=== PATIENT | female | born 1945 | race Caucasian/White ===

== ENCOUNTER → 2018-05-09 | Outpatient (CLI) | payer OTHER ==
[~2018-05-09] MED LIST: ASPI-555 PO; CYAN10009 PO; FENO48TA4 PO; FURO20TA4 PO; GLYB5TAB8 PO; HYDR-4154 PO; LIRA0.6P SQ; METF-527 PO; METO-409 PO; OMEG-112 PO; SIMV40TA59 PO
== END | disposition home or self-care (01) ==
LOC: RAH 10:27
PROVIDERS: ATTEND Internal Medicine Cardiovascular Disease
DX: Z13.6 Encounter for screening for cardiovascular disorders (principal)
CPT/HCPCS: 75571

== ENCOUNTER 2018-07-25 05:40 | Day surgery (SDC) | payer MEDICARE ==
[2018-07-20 10:49] VITALS: BP 154/74
[2018-07-20 10:59] LABS: BASOPHILS % (AUTO) 0.5 % (0.0-5.0); EOSINOPHILS % (AUTO) 1.6 % (0.0-8.0); HEMATOCRIT 38.9 % (36-48); LYMPHOCYTES % (AUTO) 21.9 % (21.0-51.0); MEAN CORPUSCULAR HEMOGLOBIN 29.6 pg (27.0-33.0); MEAN CORPUSCULAR HGB CONC 33.4 g/dL (32.0-36.0); MEAN CORPUSCULAR VOLUME 88.8 fL (79-99); MONOCYTES % (AUTO) 6.6 % (3.0-13.0); NEUTROPHILS % (AUTO) 69.4 % (40.0-77.0); NUCLEATED RED BLOOD CELLS 0.1 % (0.0-0.19); PLATELET COUNT (AUTO) 150 K/uL (130-400); RED BLOOD CELL COUNT(AUTO) 4.38 MIL/uL (4.00-5.50); RED CELL DISTRIBUTION WIDTH 14.5 % (11.0-15.5); WHITE BLOOD COUNT (AUTO) 7.6 K/uL (4.8-10.8)
[2018-07-20 11:07] LABS: CREATININE 1.4 mg/dL (0.5-1.5); POTASSIUM 3.7 mmol/L (3.5-5.1)
[2018-07-20 11:11] LABS: APPEARANCE,URINE Clear (CLEAR); BILIRUBIN,URINE Negative (NEGATIVE); COLOR,URINE Yellow (YELLOW); GLUCOSE, URINE (UA) Negative (NEGATIVE); KETONES,URINE Negative (NEGATIVE); LEUKOCYTE ESTERASE ,URINE Trace (NEGATIVE); NITRATE,URINE Negative (NEGATIVE); OCCULT BLOOD,URINE Negative (NEGATIVE); PROTEIN,URINE Negative (NEGATIVE); UROBILINOGEN,URINE 0.2 mg/dL (0.2-1.0)
[2018-07-20 11:40] LABS: INR 0.96 (0.85-1.15); PARTIAL THROMBOPLASTIN TIME 29.6 SEC (26.3-35.5); PROTHROMBIN TIME 10.1 SEC (9.6-11.6)
[2018-07-20 11:42] LABS: BACTERIA,URINE None Seen /HPF (None Seen); RBC,URINE None Seen /HPF (0-1); SQUAMOUS EPITHELIAL CELL,UR Rare /HPF (0-2); WBC,URINE 0-1 /HPF (0-1)
--- NOTE | 2018-07-24 14:46 | NUR ---
ABNORMAL LABS REPORTED TO ABILIO URIOSTEGUI, NEW ORDERS NS @ 100ML/HR.
[2018-07-25] VITALS (13 sets, daily range): BP systolic 136–181; BP diastolic 65–86
[~2018-07-25] VITALS: Ht 165.1 cm; Wt 96.2 kg
[~2018-07-25 05:40] MED LIST changes: -ASPI-555 PO; +ATOR40TA71 PO; +CLON0.1T PO; -CYAN10009 PO; +FEBU40TA PO; -FENO48TA4 PO; -HYDR-4154 PO; +LINA5TAB PO; -LIRA0.6P SQ; -METF-527 PO; -METO-409 PO; +NPH,100V11 SQ; -OMEG-112 PO; -SIMV40TA59 PO; +SODIUM CHLORIDE 0.9% 500ML 500 ML IV SCH
[2018-07-25] MEDS ORDERED: SODIUM CHLORIDE 0.9% 1000ML 1,000 ML IV ONE (06:00)
--- NOTE | 2018-07-25 12:10 | NUR ---
PROCEDURE PT TAKEN TO POULTRY VACCINATOR VIA BED,NO DISTRESS NOTED. SPOUSE AT BEDSIDE.
[2018-07-25] MEDS ORDERED: IOHEXOL-350 50ML VIAL IV ONE (12:12)
[2018-07-25] MEDS ORDERED: IOHEXOL 350 MG/ML 100ML INFUS..BTL IV ONE (12:12)
[2018-07-25] MEDS ORDERED: SODIUM BICARB 50MEQ 50ML VIAL ONE (12:12)
[2018-07-25] MEDS ORDERED: NITROGLYCERIN 5 MG/ML 10 ML VIAL IV ONE (12:12)
[2018-07-25] MEDS ORDERED: LIDOCAINE HCL 2% 20ML ONE (12:12)
[2018-07-25] MEDS ORDERED: HEPARIN SODIUM 1000UNIT/ML 10ML VIAL ONE ×2 (12:13)
[2018-07-25] MEDS ORDERED: MEPERIDINE-PF 25 MG/ML SYG ONE ×2 (12:23→12:49)
[2018-07-25] MEDS ORDERED: MIDAZOLAM HCL 1 MG/ML 2ML VIAL ONE ×2 (12:23→12:48)
[2018-07-25] MEDS ORDERED: SODIUM CHLORIDE 0.9% 1000ML 1,000 ML IV SCH (13:06)
[2018-07-25] MEDS ORDERED: DEXTROSE 50%-WATER 50 ML DISP.SYRIN IV PRN (13:15)
[2018-07-25] MEDS ORDERED: GLUCAGON 1MG KIT 1 MG ML IM PRN (13:15)
[2018-07-25] MEDS ORDERED: HYDRALAZINE HCL 20 MG/ML VIAL ONE (13:15)
--- NOTE | 2018-07-25 14:40 | NUR ---
BP SBP FLUCTUATING 150'S AND 160'S. SBP 170'S X2 EPISODES. PT ASYMPTOMATIC. GILA SCHULZ. WAITING FOR CALL BACK. WILL CONTINUE TO MONITOR PT.
--- NOTE | 2018-07-25 14:45 | NUR ---
REPORT REPORT GIVEN TO KAMI RON RN. PT STABLE. NO COMPLAINTS MADE. CATH SITE TO RIGHT GROIN REMAINS SOFT, DRESSING DRY AND INTACT, NO OOZING NO HEMATOMA NOTED.
[2018-07-25] MEDS ORDERED: INSULIN HUMULIN R 100 UNIT/ML 3ML SQ SCH (16:30)
--- NOTE | 2018-07-25 17:45 | NUR ---
PT DISCHARGED HOME, TOLERATING FLUIDS WELL, EATING WELL, AMBULATING WITH STANDY-BY ASSISTANCE. DENIES ANY SEVERE PAIN, NAUSEA OR DIZZINESS. PRESCRIPTION FOR ECA GIVEN TO SPOUSE. EMERGENCY AND ROUTINE CARE OF CATH SITE GIVEN TO PT. PT AND SPOUSE VERIFY UNDERSTANDING. NO FURTHER QUESTIONS AT THIS TIME.
== END 2018-07-25 17:45 | disposition home or self-care (01) ==
LOC: DAH 05:40
PROVIDERS: ATTEND Internal Medicine Cardiovascular Disease
DX: I25.118 Atherosclerotic heart disease of native coronary artery with other forms of angina pectoris (principal); I10 Essential (primary) hypertension; Z82.49 Family history of ischemic heart disease and other diseases of the circulatory system; Z98.890 Other specified postprocedural states; E78.5 Hyperlipidemia, unspecified; E11.9 Type 2 diabetes mellitus without complications; Z79.01 Long term (current) use of anticoagulants
CPT/HCPCS: 36415; 71045; 80048; 81001; 82948 ×2; 85025; 85610; 85730; 93005; 93458; A4606; C1760; C1894; J0360; J1644 ×2; J2175 ×2; J2250 ×2; J3490 ×3; J7030; Q9965; Q9967 ×2; 99156; 99157